=== PATIENT | female | born 1975 | race Caucasian/White ===

== ENCOUNTER 2016-11-28 09:44 | Day surgery (SDC) | payer OTHER ==
[2016-11-27 11:00] VITALS: BMI 25.5
[2016-11-28] MEDS ORDERED: Lactated Ringer's 1,000 ML IV ONE (11:00)
[2016-11-28 11:02] VITALS: RESP 18
[2016-11-28] MEDS ORDERED: Propofol 10 mg/ml Inj (20 ML) ONE (12:34)
[2016-11-28] MEDS ORDERED: ePHEDrine 50 mg/ml Inj ONE (12:34)
[2016-11-28] MEDS ORDERED: Midazolam 2 MG/2 ML VIAL ONE (12:34)
[2016-11-28] MEDS ORDERED: Succinylcholine 200 mg/10 ml Inj IV ONE (12:37)
[2016-11-28] MEDS ORDERED: Bupivacaine 0.5% Inj(30mL) ONE (12:56)
[2016-11-28] MEDS ORDERED: Lidocaine 1% Inj (20ml) ONE (12:56)
[2016-11-28] MEDS ORDERED: Dexamethasone 4 mg/1 ml ONE (13:51)
[2016-11-28] MEDS ORDERED: MethylPREDNISolone Depo 40 mg/ml Inj ONE (14:55)
[2016-11-28] MEDS ORDERED: Bupivacaine 0.5% 50 ML IJ ONE (15:00)
[2016-11-28] MEDS ORDERED: methylPREDNISolone Depo 80 mg/ml Inj IM ONE (15:00)
[2016-11-28] MEDS ORDERED: Lactated Ringer's 1,000 ML IV SCH (15:40)
--- NOTE | 2016-11-28 15:40 | PCM.SURG1 ---
Surgeon's Initial Post Op Note - Surgeon's Notes Surgeon: James Ahumada MD Machine Tank Operator: Lima Carroll PA-C Type of Anesthesia: General Endo Pre-Operative Diagnosis: Right hip labral tear Operative Findings: see op report Post-Operative Diagnosis: same as pre-op dx Operation Performed: Right hip arthroscopy, extensive debriedement, decompression of CAM&Pincer lesion Specimen/Specimens Removed: none Estimated Blood Loss: EBL {In ML}: 5 Date of Surgery/Procedure: 11/28/16 Time of Surgery/Procedure: 13:45
[2016-11-28] MEDS ORDERED: Oxycodone/Acetaminophen 5/325 mg Tab PO PRN (15:42)
[2016-11-28] MEDS: HYDROmorphone 0.5 mg/0.5 ml ISec IVP PRN ×6 (15:45→16:45)
[2016-11-28] MEDS ORDERED: HYDROmorphone 0.5 mg/0.5 ml ISec ONE (15:54)
[2016-11-28 16:57] VITALS: O2SAT 99
[2016-11-28 19:00] VITALS: BP 120/62; PULSE 72; TEMP 98
--- NOTE | 2016-11-29 00:33 | OP ---
PROCEDURE DATE: 11/28/2016 ATTENDING PHYSICIAN: James Ahumada M.D. DIRECT MARKETING COORDINATOR: Lima Carroll PA-C PREOPERATIVE DIAGNOSES: 1. Right hip labral tear. 2. Right hip impingement. 3. Right hip synovitis. POSTOPERATIVE DIAGNOSES: 1. Right hip extensive synovitis. 2. Degenerative labral tear. 3. Cam impingement. 4. Pincer acetabular impingement. 5. 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 PROCEDURE: 1. Right hip arthroscopy and synovectomy 30977. 2. Right hip arthroscopic chondroplasty 81839. 3. Right hip femoral plasty 67768. 4. Right hip acetabuloplasty 34163. 6. Fluoroscopy use under 1 hour 61571. 7. Hip joint injection, cortisone injection . TYPE OF ANESTHESIA: General. ESTIMATED BLOOD LOSS: 5 mL. SPECIMEN: None. HISTORY: Patient is a 41-year-old female with a longstanding history of right hip pain who had initially been managed with extensive conservative management, physical therapy and cortisone injection. Patient's symptoms did not improve. She underwent a MRI which showed degenerative tears of the right anterolateral labrum. She also had subspine impingement and pincer along with cam impingement. At that point, since patient failed extensive conservative management, I offered her the option of right hip arthroscopy, labral repair versus debridement, decompression and all indicated procedures. I reviewed the risks and benefits of the surgery with the patient in detail. Risks included but not limited to bleeding, infection, neurovascular damage, continued pain, stiffness, need for any further surgery among other. Patient fully understood the risks and benefits and opted to proceed with the surgery. PROCEDURE: On the day of the surgery, the patient was admitted to pre-operative holding area. A laterality sheet was completed confirming patient's right hip to be correct operative site. Patient informed consent was signed. Patient was brought into operating room table. She underwent general anesthesia. She was given appropriate prophylactic antibiotics. The right hip was placed in the traction table. X-rays were taken showing adequate distraction. The right hip was draped and prepped in standard sterile manner. First, a time out was completed, confirming patient's right hip to be the correct operative site. Using fluoroscopic guidance and a long spinal needle, first a anterolateral portal was created. The camera was placed into the hip socket. Then using the spinal needle, an accessory anterior portal was created. Then using the Samurai blade, we performed a capsulectomy to free off the space. Next, using ArthroCare, all the extensive synovectomy was performed. All the bleeding services of an inflamed synovitis were removed using shaver and radiofrequency probe. Next, the labrum was inspected using a probe. It remained attached to the acetabular rim; however, there was extensive degenerative tearing and fraying. Using the correct shaver, loose edges and frayed edges of the labrum was debrided until the stable rim. Next, the cam impingement was exposed using ArthroCare. Also, rectus tendon was identified, it appeared to be a subspine impingement. Using the high speed ajith, limited subspine decompression and also the acetabuloplasty was performed. Next, patient's leg was removed from traction and under direct fluoroscopic guidance, the cam impingement was removed to improve patient's flexion without impingement. Finally, all the loose edges were removed. All the loose bodies removed. Patient also had a grade 1 chondral injury of the femoral head, which was also debrided using the shaver. Finally, all the instruments were removed. All the debris was removed. The hip was injected with cortisone injection. The portals were closed using nylon suture. Sterile dressing was applied. Patient was extubated. She was transferred to the stretcher and taken to the recovery room. Her postoperative instructions included weightbearing as tolerated, full range of motion, and also pain control. Lima Carroll, the certified physician early childhood assistant who was present for the entirety of the case, as her participation was crucial in patient's positioning, holding traction, retraction, and protection of critical neurovascular structure, and successful completion of the surgery. James Ahumada MD
--- NOTE | 2016-11-29 14:01 | RAD ---
PROCEDURE: Fluoroscopic assistance HISTORY: RIGHT HIP COMPARISON: None TECHNIQUE: Standard protocol for this study/examination. FINDINGS: Total fluoroscopic time (continuous mode) utilized during the procedure: 46.2 seconds. IMPRESSION: Submitted images from the current procedure: 5.0.
== END 2016-11-28 19:05 | disposition home or self-care (01) ==
LOC: H.OPSURG 09:44
PROVIDERS: ATTEND Orthopaedic Surgery
DX: M65.88 Other synovitis and tenosynovitis, other site (principal); M94.251 Chondromalacia, right hip; S73.191A Other sprain of right hip, initial encounter; M25.851 Other specified joint disorders, right hip

== ENCOUNTER 2018-04-03 08:34 | Emergency (ER) | payer BC, OTHER ==
[2018-04-03 08:36] VITALS: BMI 28.1
[2018-04-03 08:38] VITALS: TEMP 98.5; O2SAT 98
--- NOTE | 2018-04-03 09:29 | ED PDOC ---
HPI: General Adult Time Seen by Provider: 04/03/18 08:43 Chief Complaint (Nursing): Cough, Cold, Congestion Chief Complaint (Provider): Cough, Cold, Congestion History Per: Patient History/Exam Limitations: no limitations Onset/Duration Of Symptoms: Days (x3 weeks) Current Symptoms Are (Timing): Still Present Additional Complaint(s): Samantha Marrero is a 42 year old female presenting for evaluation of flu-like symptoms x3 weeks. Patient reports headache, productive cough associated with burning chest pain, body aches, diarrhea, runny nose, poor appetite, and fatigue. Patient states she's had difficulty eating and sleep. Patient denies any episodes of vomiting, nausea, or documented fever, but confirms chills and diaphoresis. Patient also denies any recent travel or sick contacts. Patient reports trying multiple medications for her symptoms including Motrin, Sudafed, and a Z-Alonso which was prescribed to her by her PMD, Dr. Suh. Of note, patient reports recently taking Amoxicillin for a dental abscess. PMD: Dr. Neno Suh Past Medical History Reviewed: Historical Data, Nursing Documentation, Vital Signs Vital Signs: Last Vital Signs Temp 98.5 F 04/03/18 08:36 Pulse 89 04/03/18 08:36 Resp 17 04/03/18 08:36 BP 143/99 H 04/03/18 08:36 Pulse Ox 98 04/03/18 08:36 - Medical History PMH: Anxiety, Arthritis, Bipolar Disorder, Depression, Sexually Transmitted Disease (Herpes) Denies: Alzheimer's Disease, Asthma, Bronchitis, Cardia Arrhythmia, CHF, COPD, Dementia, Diabetes, Emphysema, Hepatitis, HIV, HTN, Hypercholesterolemia, Migraine, Mitral Valve Prolapse, Parkinson's Disease, Peripheral Edema, Pneumonia, Chronic Kidney Disease, Seizures, Sleep Apnea, TIA - Surgical History Surgical History: Endoscopy Denies: Coronary Stent, Pacemaker - Family History Family History: States: Unknown Family Hx - Immunization History Hx Tetanus Toxoid Vaccination: No Hx Influenza Vaccination: No Hx Pneumococcal Vaccination: No - Home Medications Home Medications: Ambulatory Orders Medication Instructions Recorded Benztropine [Cogentin] 0.5 mg PO AMHS #30 tab 11/27/17 Divalproex [Depakote DR(*BID*)] 500 mg PO AMHS #30 tcp 11/27/17 Famotidine [Pepcid] 20 mg PO 1000,2200 #14 tab 11/27/17 Nicotine 21 mg/24 hr [Nicoderm Cq] 1 patch TD DAILY #14 patch 11/27/17 Polyethylene Glycol 3350 [Miralax] 17 gm PO DAILY #7 packet 11/27/17 Venlafaxine [Effexor-XR] 75 mg PO DAILY #14 cer 11/27/17 Zaleplon [Sonata] 5 mg PO HS PRN #14 cap 11/27/17 clonazePAM [Klonopin] 1 mg PO TID #45 tab 11/27/17 risperiDONE [RisperDAL Tab] 1 mg PO DAILY #14 tab 11/27/17 risperiDONE [RisperDAL Tab] 2 mg PO HS #14 tab 11/27/17 Famotidine [Pepcid] 20 mg PO BID #28 tab 04/03/18 Ondansetron [Zofran] 4 mg PO Q8H #9 tab 04/03/18 Promethazine DM [Phenergan DM 10 ml PO Q8H PRN #120 ml 04/03/18 Syrup] - Allergies Allergies/Adverse Reactions: Allergies Allergy/AdvReac Type Severity Reaction Status Date / Time No Known Allergies Allergy Verified 11/20/17 01:36 Review of Systems ROS Statement: Except As Marked, All Systems Reviewed And Found Negative Constitutional: Positive for: Chills, Other (fatigue) ENT: Positive for: Nose Discharge, Nose Congestion Cardiovascular: Positive for: Chest Pain Respiratory: Positive for: Cough, Sputum. Negative for: Shortness of Breath, Wheezing Gastrointestinal: Positive for: Abdominal Pain, Diarrhea. Negative for: Vom iting Genitourinary Female: Negative for: Dysuria, Frequency, Incontinence, Hematuria Neurological: Positive for: Headache Physical Exam - Reviewed Nursing Documentation Reviewed: Yes Vital Signs Reviewed: Yes - Physical Exam Appears: Positive for: Non-toxic, No Acute Distress Head Exam: Positive for: ATRAUMATIC, NORMAL INSPECTION, NORMOCEPHALIC Skin: Positive for: Normal Color, Warm, Dry. Negative for: Rash Eye Exam: Positive for: EOMI, Normal appearance, PERRL ENT: Positive for: Other (slightly dry mucosa) Neck: Positive for: Normal, Painless ROM, Supple Cardiovascular/Chest: Positive for: Regular Rate, Rhythm. Negative for: Murmur Respiratory: Positive for: Normal Breath Sounds. Negative for: Respiratory Distress Gastrointestinal/Abdominal: Positive for: Soft, Tenderness (mild RLQ). Negative for: Guarding, Rebound Back: Positive for: Normal Inspection. Negative for: L CVA Tenderness, R CVA Tenderness, Vertebral Tenderness Extremity: Positive for: Normal ROM. Negative for: Pedal Edema, Deformity Neurologic/Psych: Positive for: Alert, Oriented (x3). Negative for: Motor/Sensory Deficits - Laboratory Results Result Diagrams: 04/03/18 09:17 04/03/18 09:17 - ECG O2 Sat by Pulse Oximetry: 98 (RA) Pulse Ox Interpretation: Normal Medical Decision Making Medical Decision Makin: Impression: R/o URI vs influenza vs pneumonia Plan: -CMP -Urine dip -CBC -CXR -1LNS IVB -Pepcid 20mg IVP -Toradol 30mg IVP -Flu swab -Reevaluation Scribe Attestation: Documented by Azael Temple, acting as a scribe for Jennifer Mcgee MD. Provider Scribe Attestation: All medical record entries made by the Scribe were at my direction and personally dictated by me. I have reviewed the chart and agree that the record accurately reflects my personal performance of the history, physical exam, medical decision making, and the department course for this patient. I have also personally directed, reviewed, and agree with the discharge instructions and disposition. 12.00p - patient feeling better. labs, chest x-ray: normal. Will discharge. Disposition - Clinical Impression Clinical Impression: Viral syndrome - Patient ED Disposition Is Patient to be Admitted: No Doctor Will See Patient In The: Office Counseled Patient/Family Regarding: Diagnosis, Need For Followup, Rx Given - Disposition Referrals: Neno Suh MD [Family Provider] - Disposition: Routine/Home Disposition Time: 12:16 Condition: IMPROVED Prescriptions: Famotidine [Pepcid] 20 mg PO BID #28 tab Ondansetron [Zofran] 4 mg PO Q8H #9 tab Promethazine DM [Phenergan DM Syrup] 10 ml PO Q8H PRN #120 ml PRN Reason: Cough Instructions: Viral Syndrome (DC) Forms: [facility] (Urdu) - POA Present On Arrival: None
[2018-04-03 09:32] LABS: BASO # 0.1 K/uL (0.0-0.2); BASO % 0.9 % (0.0-2.0); EOS # 0.1 K/uL (0.0-0.7); EOS % 1.2 % (0.0-4.0); HEMOGLOBIN 15.1 g/dL (12.0-16.0); LYMPH # 1.7 K/uL (1.0-4.3); LYMPH % 18.1 % (20.0-40.0); MEAN CELL VOLUME 86.9 fl (81.0-99.0); MEAN CORPUSCULAR HEMOGLOBIN 29.3 pg (27.0-31.0); MEAN CORPUSCULAR HGB CONC 33.7 g/dL (33.0-37.0); MEAN PLATELET VOLUME 7.6 fl (7.2-11.7); MONO # 0.4 K/uL (0.0-0.8); MONO % 4.3 % (0.0-10.0); NEUT # 7.2 K/uL (1.8-7.0); NEUT % 75.5 % (50.0-75.0); NRBC % 0.1 % (0.0-0.0); RBC 5.16 Mil/uL (3.80-5.20); RED CELL DISTRIBUTION WIDTH 12.9 % (11.5-14.5); WHITE BLOOD COUNT 9.6 K/uL (4.8-10.8)
[2018-04-03 09:46] LABS: ALB/GLOB RATIO 1.2 (1.0-2.1)
[2018-04-03 09:48] LABS: ALBUMIN 4.2 g/dL (3.5-5.0); ALT/SGPT 14 U/L (9-52); AST/SGOT 23 U/L (14-36); BLOOD UREA NITROGEN 8 mg/dl (7-17); CALCIUM 9.3 mg/dL (8.4-10.2); GFR NON-AFRICAN AMERICAN > 60
--- NOTE | 2018-04-03 09:57 | RAD ---
Date of service: 04/03/2018 HISTORY: cough x 3 weeks COMPARISON: 11/14/2013 TECHNIQUE: Chest PA and lateral FINDINGS: LUNGS: No active pulmonary disease. PLEURA: No significant pleural effusion identified. No pneumothorax apparent. CARDIOVASCULAR: No aortic atherosclerotic calcification present. Normal cardiac size. No pulmonary vascular congestion. OSSEOUS STRUCTURES: No significant abnormalities. VISUALIZED UPPER ABDOMEN: Normal. OTHER FINDINGS: None. IMPRESSION: No interval pathology noted. No acute cardiopulmonary pathology appreciated. Specifically no pulmonary infiltrates appreciated
[2018-04-03] MEDS: Sodium Chloride 0.9% 1,000 ML IV STA (10:01)
[2018-04-03 12:40] VITALS: BP 140/90; PULSE 82; RESP 18
== END 2018-04-03 12:40 | disposition home or self-care (01) ==
LOC: H.ER 08:34
DX: B34.9 Viral infection, unspecified (principal); F31.9 Bipolar disorder, unspecified; F41.9 Anxiety disorder, unspecified
CPT/HCPCS: 71046; 80053; 81025; 85025; 87804; 96374; 96375; 99283; J1885; J7030